=== PATIENT | female | born 1985 | race American Indian/Alaskan Native ===

== ENCOUNTER 2018-01-27 08:43 | Emergency (ER) | payer SELFPAY ==
[2018-01-27 09:37] VITALS: BP 128/78
--- NOTE | 2018-01-27 11:52 | Emergency Department Report ---
ED Recheck HPI - General Chief Complaint: Medical Clearance Stated Complaint: MENTAL HEALTH EVALUATION Time Seen by Provider: 01/27/18 11:47 Source: patient Mode of arrival: Ambulatory Limitations: No Limitations - History of Present Illness Initial Comments: Patient requesting refill on 3 psychiatric medication to include Seroquel, Abilify and Celexa. She says she's been out of her medication for one year and she needs a refill on THE REFERRAL FOR MENTAL HEALTH. SHE DENIES ANY SUICIDE OR HOMICIDE IDEATION. NO OTHER COMPLAINTS. Complaint: medication refill request -: unknown (out of her medication times one year) Initial Visit For: other (not applicable) Returns Today for: request for prescription Symptoms Since Prior Visit: no new symptoms Context: ran out of medication Associated Symptoms: none Treatments Prior to Arrival: other (none) - Related Data Allergies Allergy/AdvReac Type Severity Reaction Status Date / Time No Known Allergies Allergy Unverified 01/27/18 09:37 ED Review of Systems ROS: Stated complaint: MENTAL HEALTH EVALUATION Other details as noted in HPI Comment: All other systems reviewed and negative Constitutional: no symptoms reported Respiratory: no symptoms reported Cardiovascular: denies: chest pain, palpitations, edema, syncope Gastrointestinal: denies: abdominal pain, nausea, diarrhea Genitourinary: denies: as per HPI, dysuria, frequency, hematuria, abnormal menses Musculoskeletal: denies: back pain, arthralgia Skin: denies: rash Neurological: denies: headache Psychiatric: denies: anxiety, depression, auditory hallucinations, visual hallucinations, homicidal thoughts, suicidal thoughts ED Past Medical Hx - Past Medical History Previous Medical History?: Yes Additional medical history: Hx of depression. - Surgical History Past Surgical History?: No - Family History Family history: no significant - Social History Smoking Status: Current Every Day Smoker Substance Use Type: None ED Physical Exam - General Limitations: No Limitations General appearance: alert, in no apparent distress - Head Head exam: Present: atraumatic, normocephalic, normal inspection, other (normal exam) - Eye Eye exam: Present: normal appearance, PERRL, EOMI. Absent: periorbital swelling , periorbital tenderness Pupils: Present: normal accommodation - ENT ENT exam: Present: normal exam, normal orophraynx, mucous membranes moist - Neck Neck exam: Present: normal inspection, full ROM. Absent: tenderness, lymphadenopathy - Respiratory Respiratory exam: Present: normal lung sounds bilaterally. Absent: respiratory distress, chest wall tenderness - Cardiovascular Cardiovascular Exam: Present: regular rate, normal rhythm, normal heart sounds - GI/Abdominal GI/Abdominal exam: Present: soft, normal bowel sounds. Absent: distended, tenderness, guarding, rebound, rigid, mass, bruit, pulsatile mass, hernia - Extremities Exam Extremities exam: Present: normal inspection, full ROM, normal capillary refill , other (clubbing, cyanosis or edema. +2 pulses to all extremities). Absent: tenderness, pedal edema, joint swelling, calf tenderness - Back Exam Back exam: Present: normal inspection, full ROM, other (ambulates without any difficulties). Absent: tenderness, CVA tenderness (R), CVA tenderness (L), muscle spasm, paraspinal tenderness, vertebral tenderness, rash noted - Neurological Exam Neurological exam: Present: alert, oriented X3, normal gait - Psychiatric Psychiatric exam: Present: normal affect, normal mood. Absent: depressed, agitated, anxious, flat affect, manic, homicidal ideation, suicidal ideation - Skin Skin exam: Present: warm, normal color. Absent: rash ED Course Vital Signs 01/27/18 09:32 Temperature 98 F Pulse Rate 94 H Respiratory 16 Rate Blood Pressure 128/78 O2 Sat by Pulse 100 Oximetry - Reevaluation(s) Reevaluation #1: 01/27/18 12:40 Patient seen by mental health counselor and was referred to [facility]. She will see her psychiatrist there who can start her back on her medication. ED Recheck MDM - Medical Decision Making ED Course: She requests then mental health medication to be refilled and requested referral to psych facility for outpatient psychiatry. She says she's been out of her medication for one year. She denies any suicide or homicide ideation. Denies any depression. Denies any hallucination. She was seen by mental health counselor and was referred to outpatient mental health. Patient is stable and discharged from emergency room in stable condition. Critical care attestation.: If time is entered above; I have spent that time in minutes in the direct care of this critically ill patient, excluding procedure time. ED Disposition Clinical Impression: Encounter for medication refill Disposition: DC-01 TO HOME OR SELFCARE Is pt being admited?: No Does the pt Need Aspirin: No Condition: Stable Instructions: Medical Clearance for Psychiatric Care (ED) Additional Instructions: Please call mental health outpatient clinic that you were referred to by mental health consul her to schedule an appointment today for maintenance of mental health problem and refill on your psychiatric medication. If you become suicidal or homicidal before [facility] psychiatrist, please return to the emergency room immediately. Referrals: [facility] [Outside] - 01/28/18 [facility] [Outside] - 01/28/18 Forms: Work/School Release Form(ED)
[2018-01-27 12:24] LABS: HCG Qualitative,Urine Negative (Negative)
== END 2018-01-27 12:48 | disposition home or self-care (01) ==
LOC: ED 08:43
DX: F32.9 Major depressive disorder, single episode, unspecified (principal); F17.200 Nicotine dependence, unspecified, uncomplicated; Z76.0 Encounter for issue of repeat prescription
CPT/HCPCS: 81025; 99283